=== PATIENT | female | born 1995 | race Hispanic/Latino ===

== ENCOUNTER 2022-10-24 14:26 | Emergency (ER) | payer BC ==
[~2022-10-24] VITALS: Ht 162.6 cm; Wt 71.7 kg
[2022-10-24] MEDS ORDERED: HYDROCODON-ACE1 EA11 PO (15:00)
== END 2022-10-24 15:42 | disposition home or self-care (01) ==
LOC: ER 14:39
DX: Z47.89 Encounter for other orthopedic aftercare (principal); W50.1XXA Accidental kick by another person, initial encounter; Y93.66 Activity, soccer; Y92.322 Soccer field as the place of occurrence of the external cause
CPT/HCPCS: 99284